=== PATIENT | female | born 1980 | race Caucasian/White ===

== ENCOUNTER 2019-11-20 07:44 | Day surgery (SDC) | payer OTHER ==
[~2019-11-20] VITALS: Ht 160 cm; Wt 86.2 kg
[2019-11-20] MEDS ORDERED: diphenhydrAMINE 50 MG/ML VIAL ONE (08:58)
[2019-11-20] MEDS ORDERED: fentaNYL citrate 0.05 MG/ML VIAL ONE (08:58)
[2019-11-20] MEDS ORDERED: MIDAZOLAM 5 MG/5 ML VIAL ONE (08:59)
[2019-11-20] MEDS ORDERED: fentaNYL citrate 0.05 MG/ML VIAL IVP ONE (12:30)
[2019-11-20] MEDS ORDERED: MIDAZOLAM 2 MG/2 ML VIAL IVP ONE (12:30)
== END 2019-11-20 09:50 | disposition home or self-care (01) ==
LOC: MDS 07:44 → MMU 07:48 → MDS 09:50
PROVIDERS: ATTEND Internal Medicine Gastroenterology
DX: K21.9 Gastro-esophageal reflux disease without esophagitis (principal); Z98.84 Bariatric surgery status; Z90.49 Acquired absence of other specified parts of digestive tract; Z88.5 Allergy status to narcotic agent; Z79.899 Other long term (current) drug therapy; Z20.828 Contact with and (suspected) exposure to other viral communicable diseases
CPT/HCPCS: 43239; 81025; 88305; 88312; 88313; J2250; J3010; J1200